=== PATIENT | female | born 1990 | race Caucasian/White ===

== ENCOUNTER → 2020-01-04 11:25 | Outpatient (CLI) | payer OTHER, MEDICAID, SELFPAY ==
--- NOTE | 2020-01-04 11:28 | DI.RAD.S_ITS ---
PROCEDURE: XR FOOT LT MIN 3V INDICATIONS: pain to lateral aspect of foot, r/o fx TECHNIQUE: 3 views of the foot were acquired. COMPARISON: None. FINDINGS: Bones: No fractures or dislocations. No suspicious bony lesions. Soft tissues: No tibiotalar joint effusion. Achilles tendon appears normal. IMPRESSION: No evidence of left foot fracture or dislocation. Dictated by: Jaxon Dailey M.D. on 01/04/2020 at 12:17 Approved by: Jaxon Dailey M.D. on 01/04/2020 at 12:25
--- NOTE | 2020-01-04 11:28 | DI.RAD.S_ITS ---
PROCEDURE: XR ANKLE LT MIN 3V INDICATIONS: pain to lateral aspect of foot, r/o fx TECHNIQUE: 3 views of the ankle were acquired. COMPARISON: None. FINDINGS: Bones: No fractures or dislocations. Ankle mortise is normally aligned. No suspicious bony lesions. Soft tissues: No tibiotalar joint effusion. Achilles tendon appears normal. IMPRESSION: No ankle fracture or dislocation. Ankle mortise is congruent. Dictated by: Jaxon Dailey M.D. on 01/04/2020 at 12:15 Approved by: Jaxon Dailey M.D. on 01/04/2020 at 12:17
== END ==
PROVIDERS: Referring Provider Physician Assistant; Visit Provider Physician Assistant
DX: M79.672 Pain in left foot (principal)
CPT/HCPCS: 73610; 73630